=== PATIENT | male | born 1990 | race African-American/Black ===

== ENCOUNTER 2018-03-19 17:07 | Emergency (ER) | payer SELFPAY | END 2018-03-19 18:12 | disposition home or self-care (01) | LOC: ERS 17:07 | DX: H10.33 Unspecified acute conjunctivitis, bilateral (principal); J45.909 Unspecified asthma, uncomplicated | CPT/HCPCS: 99283 ==

== ENCOUNTER 2018-08-27 00:27 | Emergency (ER) | payer SELFPAY ==
--- NOTE | 2018-08-27 07:46 | RAD ---
RIGHT HAND 3 VIEWS: INDICATION: History of right hand injury. COMPARISON: None. FINDINGS: There is a comminuted distal tuft fracture involving the right long finger distal phalanx. No additi onal fracture is grossly evident. No radiopaque foreign body is evident. IMPRESSION: Mildly comminuted distal tuft fracture of the right long finger. POS: [facility]
== END 2018-08-27 02:00 | disposition home or self-care (01) ==
LOC: ERS 00:27
DX: S62.632A Displaced fracture of distal phalanx of right middle finger, initial encounter for closed fracture (principal); J45.909 Unspecified asthma, uncomplicated; W23.0XXA Caught, crushed, jammed, or pinched between moving objects, initial encounter

== ENCOUNTER 2019-02-14 02:50 | Emergency (ER) | payer SELFPAY ==
--- NOTE | 2019-02-14 07:31 | RAD ---
EXAM: Single view of the chest HISTORY: Dyspnea and chest pain COMPARISON: 03/12/2012 FINDINGS: Single view of the chest shows a normal sized cardiomediastinal silhouette. There is no shae dence of consolidation, mass, or pleural effusion. The bones are unremarkable. IMPRESSION: No evidence of acute cardiopulmonary disease
--- NOTE | 2019-02-18 10:09 | EKG ---
Test Reason : Blood Pressure : / mmHG Vent. Rate : 088 BPM Atrial Rate : 088 BPM P-R Int : 120 ms QRS Dur : 072 ms QT Int : 326 ms P-R-T Axes : -05 010 031 degrees QTc Int : 394 ms Normal sinus rhythm Normal ECG Confirmed by TRAY JAIN, ERIC ([id number]), associate entertainment editor HARSHIL KHAN ([id number]) on 02/18/2019 10:08:54 AM Referred By: Confirmed By:ERIC FELIZ MD
== END 2019-02-14 03:23 | disposition home or self-care (01) ==
LOC: ERS 02:50
DX: J45.909 Unspecified asthma, uncomplicated (principal)
CPT/HCPCS: 71045; 93005; 94640; J7620

== ENCOUNTER 2019-05-30 15:15 | Emergency (ER) | payer SELFPAY ==
[2019-05-30] MEDS ORDERED: Acetaminophen 500 MG TAB ONE (16:42)
== END 2019-05-30 16:50 | disposition home or self-care (01) ==
LOC: ERS 15:15
DX: J11.1 Influenza due to unidentified influenza virus with other respiratory manifestations (principal)
CPT/HCPCS: 87804; 99283